=== PATIENT | female | born 1995 | race African-American/Black ===

== ENCOUNTER 2016-12-04 04:21 | Inpatient (IN) ==
[2016-12-04] MEDS ORDERED: ONDANSETRON 4 MG/2 ML VIAL IV PRN (04:41)
[2016-12-04] MEDS ORDERED: MEPERIDINE 50 MG/1 ML VIAL IV PRN (04:41)
[2016-12-04] MEDS ORDERED: BUTORPHANOL 2 MG/ML VIAL IV PRN (04:41)
[2016-12-04] MEDS ORDERED: LACTATED RINGERS 1,000 ML IV SCH (05:00)
--- NOTE | 2016-12-04 05:21 | OB/GYN History & Physical ---
History of Present Illness Chief complaint: Abdominal pain and bleeding History of present illness: Ms. Nickerson is a 21 year old female at 20 1/7 weeks who presented to L&D with complaints of abdominal pain, vaginal discomfort and bleeding. Pt checked on arrival and baby noted in the vault, complete dilation with a BBOW. Pt reports that she was "hurting" all day yesterday. When she went to the bathroom this morning, she had a difficult time voiding. After finally voiding she felt vaginal pain and pressure then decided to come in. course uneventful. Close interval. First baby delivered in September of 2015. Medical history significant for obesity. Surgical history significant for cholecystectomy. Home Medications Medication Instructions Recorded Confirmed Type No Known Home Medications [No 12/04/16 12/04/16 History Known Home Medications] Allergies Allergy/AdvReac Type Severity Reaction Status Date / Time Cherries Allergy Severe Swelling Verified 02/19/16 06:21 of Lip/Tongue/Throat ibuprofen [From Motrin] Allergy Intermediate RASH Verified 02/19/16 06:21 Medical,Surgical,& Family Hx - Medical History Cardio: No history of: Hypertension, Cardiovascular Problems Psychological: No history of: Anxiety Disorders, Behavior Problems, Depression, Previous Suicide Attempt, Psychiatric/Substance Abuse Tx, Psychiatric Problems Neurology: No history of: Migraine HEENT: No history of: HEENT Problems Endocrine: No history of: Thyroid Disorder, Endocrine Problems Respiratory: History of: Bronchitis No history of: Asthma, Obstructive Sleep Apnea, Respiratory Problems Renal: No history of: Renal Problems Genitourinary: No history of: Problems Gastrointestinal: No history of: GI Problems Musculoskeletal: No history of: Amputation, Musculoskeletal Problems Hematology: No history of: Bleeding Problems Reproductive: History of: Reproductive Problems (35 weeks ) No history of: Ectopic , Complication, Sexually Transmitted Disorders Other: No history of: Anesthesia Reactions, Cancer, HIV, Skin Problems, Miscellaneous Medical Problems - Surgical History Cardiac Surgeries: Patient Denies: Cardiac Catheterization, Cardiac Surgery Thoracic Surgeries: Patient denies;: Organ Transplant Neurologic Surgeries: Patient denies: Neurologic Surgery Abdominal Surgeries: Surgical HX of: Abdominal Surgery (gall stone surgery) Patient denies: Appendectomy, Cholecystectomy, Colonoscopy, Gastric Bypass Surgery, EGD Reproductive Surgeries: Patient denies;: Breast Surgery, Section, Dilation and Curettage, Genitourinary Surgery, Gynecologic Surgery, Hysterectomy, Tubal Ligation Orthopedic Surgeries: Patient denies;: Implanted Devices, Orthopedic Surgery, Spinal Surgery, Total Hip Replacement, Total Knee Replacement - Family History Family History: Reports;: Family Cancer (FATHER, MGF), Family Heart Disease (MOM , MGM), Family Hypertension (MOM, FATHER, GRANDPARENTS) Denies;: Family Anesthesia Reaction, Family Psychiatric Problems, Family Stroke - Social History Smoking Status: Never smoker 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 Absent: tenderness Assessment and Plan (1) 20 weeks gestation of Status: Acute Current Visit: Yes (2) labor in second trimester Status: Acute Assessment and plan: 20 1/7 weeks with complete dilation, BBOW and baby partially in the vault Anticipate Send UA, GC/CHL/Trich screen, Drug screen and appropriate bloodwork Current Visit: Yes
[2016-12-04 05:31] LABS: Apearance,Urine CLOUDY (Clear); Bilirubin,Urine Negative (Negative); Blood, Urine Negative (Negative); Glucose,Urine (UA) Negative (Negative); Ketones,Urine 5 mg/dL (Negative); Mucus,Urine Few /LPF (Occasional); Nitrite,Urine Negative (Negative); Protein,Urine Negative; RBC,Urine 6 /HPF (0-4); Squamous Epithelial Cell,Urine Occasional /HPF (0-10); Urine Color Yellow (Yellow); Urine Specific Gravity 1.021 (1.001-1.035); WBC,Urine 1 /HPF (0-6)
[2016-12-04 05:49] LABS: Basophils % 0.1 % (0.0-0.8); Eosinophils # 0.1 10*3/uL (0.0-0.87); Eosinophils % 0.7 % (0.00-10.9); Hematocrit 27.7 VOL% (35.7-47.0); Immature Granulocytes % 0.3 %; Immature Granulocytes Absolute 0.03 #; Lymphocytes % 16.9 % (21.3-54.2); Mean Corpuscular HGB Conc 32.5 GM/DL (32-36); Mean Corpuscular Hemoglobin 27 PG (27-34); Mean Corpuscular Volume 83.2 FL (87-102); Monocytes # 0.7 10*3/uL (0.11-0.8); Monocytes % 6.1 % (1.7-12.7); Neutrophils % 75.9 % (38.7-73.9); Platelet Count 235 T/CUMM (130-400); Red Blood Count 3.33 MC/CUMM (3.8-5.5); Red Cell Distribution Width 15.1 % (9.3-17.3); White Blood Count 11.8 T/CUMM (4-12)
[2016-12-04] MEDS ORDERED: OXYTOCIN/LR 20 UNIT/1,000 ML BAG IV ONE ×2 (06:06→06:16)
[2016-12-04] MEDS ORDERED: miSOPROStol 200 MCG TABLET ONE (06:35)
--- NOTE | 2016-12-04 06:44 | Event Note ---
DELIVERY NOTE of male en caul. Placenta remains undelivered. Baby alive with delivery and moving. 400 micrograms of cytotec placed vaginally. No lacerations noted.
[2016-12-04 06:59] LABS: Barbiturates Screen,Urine Negative (Negative); Benzodiazepines Screen,Urine Negative (Negative); Cannabinoid Screen,Urine Negative (Negative); Opiate Screen,Urine Negative (Negative); Phencyclidine Screen,Urine Negative (Negative)
--- NOTE | 2016-12-04 09:52 | Event Note ---
0917:This patient had a spontaneous delivery of a nonviable . Her placenta was still intact and the patient was complaining of pain and pressure. The placenta was manually removed intact the patient was given IV pain meds for pain management. She tolerated the procedure well. The vagina and cervix was inspected with no tears or lacerations noted. Several large clots as well as the placenta was removed from the uterus. The placenta was sent to pathology for further evaluation. Estimated blood loss was approximately 150 cc , at the time of dictation the patient is in stable condition.
[2016-12-04] MEDS: FERROUS SULFATE 325 MG TABLET PO SCH (22:00)
[2016-12-05 07:25] VITALS: BP 93/51
[2016-12-05] MEDS: FERROUS SULFATE 325 MG TABLET PO SCH (08:46)
--- NOTE | 2016-12-05 09:38 | OB/GYN Progress Note ---
Assessment and Plan (1) Vaginal delivery Status: Resolved Assessment and plan: Routine orders. 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 Tearful. Exam GROUP CONTRACT ANALYST - Constitutional Vitals: Vital Signs Temp Pulse Resp BP Pulse Ox 12/05/16 07:24 99.1 F 91 H 18 93/51 99 12/05/16 06:00 18 12/05/16 04:00 98.5 F 94 H 18 105/56 99 12/05/16 02:00 18 12/05/16 00:00 99.5 F 98 H 18 102/48 100 12/04/16 20:00 98.9 F 101 H 18 114/64 100 12/04/16 15:36 99.7 F H 89 18 105/65 98 12/04/16 12:44 98.4 F 106 H 20 127/78 General appearance: no acute distress - Antepartum / Post Antepartum Exam Breast: bilateral: normal Abdomen obstetrics: Present: bowel sounds hypoactive Vagina: Present: normal moisture, discharge (light lochia rubra) Uterus exam: Present: enlarged - Respiratory Respiratory exam: Present: clear to auscultation bilaterally - Cardiovascular Cardiovascular exam: Present: regular rate and rhythm - GI/Abdominal GI/Abdominal exam: Present: normal bowel sounds, soft - Extremities Exam Extremities exam: Present: normal inspection - Back Exam Back exam: Present: normal inspection - Neurological Exam Neurological exam: Present: alert, oriented X3 - Psychiatric Psychiatric exam: Present: depressed - Skin Skin exam: Present: normal color, warm Results - Labs CBC & BMP: 12/04/16 05:33
--- NOTE | 2016-12-05 09:59 | Discharge Summary ---
Hospital Course - Hospital Course Hospital Course: Ms. Nickerson presented to the labor department with spontaneous rupture membranes and labor. She subsequently delivered a nonviable infant. Her placenta had to be manually removed but was sent to pathology intact. The patient has followed a normal course and she has done well other than expected sadness due to her loss. Her bleeding is minimal with no odor. The patient desires to go home. Her vital signs and lab values are stable. She will be discharged home with prescriptions for pain and follow-up appointment in our office. The patient will also be sent home on an anti- depressant for depression. Diagnosis - Discharge Diagnosis (1) Vaginal delivery Status: Resolved Specialty Discharge - Follow Up or Referrals Follow up with: Viridiana Tang MD [Physician] - 1 Month Discharge Plan - Discharge Data Disposition: Disch To Home/Self Care Condition at Discharge: Stable Discharge Diet: advance to your usual diet, regular diet Activity: resume usual activities as tolerated Hygiene: may shower Weight Bearing at Discharge: weight bear as tolerated Driving: no restrictions Contact your physician if you experience:: fever over 101, pain uncontrolled by pain medications - Discharge Medications New Ferrous Sulfate Tab [Feosol Original Tab] 325 mg PO BID #60 tablet Acetamin/Codeine 300-30 Tab [Tylenol/Codeine #3] 2 tablet PO Q4H PRN #30 tablet PRN Reason: Pain Mild To Moderate (1-7) - Follow Up or Referral - Forms/Instructions Instructions: Vaginal Delivery (DC), Loss of a child (GEN) Exam - Constitutional Vitals: Period Temp Pulse Resp BP Sys/Hearn Pulse Ox Last 24 Hr 98.4 F-99.7 F 89-106 18-20 93-127/48-78 98-100 General appearance: no acute distress - Head Head exam: Present: normal inspection - Respiratory Respiratory exam: Present: clear to auscultation bilaterally - Cardiovascular Cardiovascular exam: Present: regular rate and rhythm - GI/Abdominal GI/Abdominal exam: Present: normal bowel sounds, soft - Extremities Exam Extremities exam: Present: normal inspection - Neurological Exam Neurological exam: Present: alert, oriented X3 - Psychiatric Psychiatric exam: Present: normal affect, normal mood - Skin Skin exam: Present: normal color, warm Discharge Results Procedures and tests throughout hospitalization: Pending Orders 12/04/16 04:41 Urinalysis Routine 12/04/16 07:04 Trichomonas vaginalis,Misc Stat DS: Provider Date of admission: 12/04/16 04:41 Primary care physician: . No PCP Attending physician on admission: Laura Izaguirre MD Consults: 12/04/16 04:41 Consult to Anesthesiology [CONS] Routine Consulting Provider: Reason for Anesthesiology: Epidural Consult Comment: Epidural for pain managment 12/04/16 05:51 Consult to Pastoral Services [CONS] Routine Comment: 20 WEEK LOSS Pastoral Screen: Request Hourly Shift Visit Grief Over Loss Pastoral Screen Source of Request: Patient Name of Physician Requesting: Other Source Requesting: PATIENT Discharging clinician: Kristi Jaimes CNM Expected date of discharge: 12/05/16
[2016-12-05] MEDS ORDERED: ESCITALOPRAM 10 MG TABLET PO SCH (10:00)
--- NOTE | 2016-12-05 12:19 | Pathology Report from [facility] ---
[facility] ACCESSION # : [id number] PATIENT NAME : Juancarlos Nickerson ORDERING DR : Laura Izaguirre MD CLINICAL HX: IUP @ 20 wks gestation, demise POST-OP DX: Same SPECIMEN INFO: Placenta GROSS DESCRIPTION: The specimen is received fresh labeled JUANCARLOS NICKERSON consists of a 122.0 gm placenta measuring 10.3 x 10.2 x 1.7 cm. The membranes are scanty with adherent chorion present. The umbilical cord is received in a separate container and measures 16.5 cm and contains three vessels. There are two claps attached. The surface is bishop-pink with a 2.5 cm rent present. Multiple areas of adherent clotted blood noted . The maternal surface is pink-smith with clotted blood and moderately to markedly disrupted cotyledons. Sectioning reveals areas of fibrosis and hemorrhage. Community Service Specialist sections submitted: (A) membranes and cord and (B) and maternal surface. DIAGNOSIS FOR JUANCARLOS NICKERSON: PLACENTA, MEMBRANES, UMBILICAL CORD: Focal acute and chronic inflammation, blood clots, focal infarction. Tri-vessel umbilical cord. Acute chorioamnionitis. COLLECTED DATE: 12/04/2016 [facility] REPORT DATE: 12/05/2016 ELECTRONICALLY SIGNED BY: Eve Chapa M.D. 12/05/2016 - 9:50:12 [facility]
== END 2016-12-05 14:50 | disposition home or self-care (01) | DRG 560 ==
LOC: N.LDOUT 04:21 → N.LD 04:23 → N.OB 12:41
PROVIDERS: ADMIT Obstetrics & Gynecology; ATTEND Obstetrics & Gynecology

== ENCOUNTER 2021-06-06 03:09 | Inpatient (IN) ==
[2021-06-06] MEDS ORDERED: BUTORPHANOL 2 MG/ML VIAL IV PRN (03:22)
[2021-06-06] MEDS ORDERED: MEPERIDINE 50 MG/1 ML VIAL IV PRN (03:22)
[2021-06-06] MEDS ORDERED: ONDANSETRON 4 MG/2 ML VIAL IV PRN (03:22)
[2021-06-06] MEDS: LACTATED RINGERS 1,000 ML IV SCH ×3 (03:40→12:32)
[2021-06-06 04:27] LABS: Basophils % 0.3 % (0.0-0.8); Eosinophils # 0.1 10*3/uL (0.0-0.87); Eosinophils % 1.1 % (0.00-10.9); Hematocrit 27.9 VOL% (35.7-47.0); Hemoglobin 8.6 GM/DL (12.0-16.0); Immature Granulocytes % 0.4 %; Immature Granulocytes Absolute 0.03 #; Lymphocytes # 2.3 10*3/uL (1.4-4.0); Lymphocytes % 29.3 % (21.3-54.2); Mean Corpuscular HGB Conc 30.8 GM/DL (32-36); Mean Corpuscular Volume 79.7 FL (87-102); Mean Platelet Volume 10.4 FL (9.6-12.0); Monocytes % 8.5 % (1.7-12.7); Neutrophils % 60.4 % (38.7-73.9); Platelet Count 259 T/CUMM (130-400); Red Cell Distribution Width 18.3 % (9.3-17.3); White Blood Count 7.9 T/CUMM (4-12)
[2021-06-06 04:41] LABS: PT Patient Result 11.4 SECS (10.5-12.0); Partial Thromboplastin Time 26.8 SECS (23.8-32.1)
[2021-06-06 04:59] LABS: Bilirubin,Direct < 0.100 MG/DL (0.0-0.20); Uric Acid 4.6 MG/DL (2.6-6.0)
[2021-06-06 05:39] LABS: Alanine Aminotransferase 12 U/L (13-56); Albumin 2.8 G/DL (3.4-5.0); Alkaline Phosphatase 119 U/L (45-117); Aspartate Amino Transferase 11 U/L (0-37); Bilirubin,Total < 0.39 MG/DL (0.20-1.00); Blood Urea Nitrogen 9 MG/DL (7-18); Calcium 9.3 MG/DL (8.5-10.1); Carbon Dioxide 20 MMOL/L (21-32); Estimated Glom Filtration Rate 167 ML/MIN; Glucose 85 MG/DL (74-106); Potassium 3.7 MMOL/L (3.5-5.1); Sodium 136 MMOL/L (136-145); Total Protein 7.1 G/DL (6.4-8.2)
[2021-06-06] MEDS ORDERED: diphenhydrAMINE 50 MG/1 ML VIAL IV PRN (06:06)
[2021-06-06] MEDS ORDERED: CITRIC ACID/SODIUM CITRATE 30 ML UDCUP PO ONE (06:06)
[2021-06-06] MEDS ORDERED: PROMETHAZINE 25 MG/1 ML VIAL IM PRN (06:06)
[2021-06-06] MEDS ORDERED: hydrOXYzine HCL 25 MG/1 ML VIAL IM PRN (06:06)
[2021-06-06] MEDS ORDERED: NALOXONE 0.4 MG/ML VIAL IV PRN (06:06)
[2021-06-06] MEDS ORDERED: FAMOTIDINE 20 MG/2 ML VIAL IV ONE (06:06)
[2021-06-06] MEDS: fentaNYL 2 MCG/ROPIV 0.2% EPID 100 ML EPIDURAL SCH ×2 (07:41→14:38)
[2021-06-06] MEDS: ePHEDrine 50 MG/ML VIAL IV PRN ×3 (07:43→08:35)
[2021-06-06] MEDS ORDERED: LABETALOL 100 MG TABLET PO SCH (09:00)
[2021-06-06] MEDS ORDERED: OXYTOCIN/LR 20 UNIT/1,000 ML BAG IV SCH (09:30)
[2021-06-06 09:36] LABS: Bilirubin,Urine Negative (Negative); Blood, Urine Small mg/dL (Negative); Glucose,Urine (UA) Negative (Negative); Ketones,Urine Negative (Negative); Mucus,Urine Occasional /LPF (Occasional); Nitrite,Urine Negative (Negative); Protein,Urine Negative; RBC,Urine 1 /HPF (0-4); Squamous Epithelial Cell,Urine Occasional /HPF (0-10); Urine Appearance CLEAR (Clear); Urine Color Straw (Yellow); Urine Specific Gravity 1.012 (1.001-1.035); Urine Urobilinogen < 2.0 EU/DL (<2.0)
[2021-06-06] MEDS ORDERED: miSOPROStoL 200 MCG TABLET ONE (15:22)
[2021-06-06] MEDS ORDERED: TRANEXAMIC ACID 1,000 MG/10 ML VIAL ONE (15:22)
[2021-06-06] MEDS ORDERED: CARBOPROST TROMETHAMINE 250 MCG/ML AMP IM ONE (15:23)
[2021-06-06] MEDS ORDERED: OXYTOCIN/LR 0 UNIT/0 ML BAG IV ONE (15:23)
[2021-06-06] MEDS ORDERED: METHYLERGONOVINE 0.2 MG/1 ML AMP ONE (15:23)
[2021-06-06] MEDS ORDERED: SODIUM CHLORIDE 0.9% 0 ML IV ONE (15:23)
[2021-06-06 16:48] LABS: Cord Arterial Blood HCO3 19.6 MMOL/L
[2021-06-06 16:49] LABS: Cord Venous Blood HCO3 21.3 MMOL/L; Cord Venous Blood PO2 27.8 MMHG
[2021-06-06] MEDS ORDERED: RHO(D) IMMUNE GLOBULIN 300 MCG SYRINGE IM ONE (19:28)
[2021-06-06] MEDS ORDERED: BISACODYL 10 MG SUPP RECTAL PRN (19:28)
[2021-06-06] MEDS ORDERED: ACETAMINOPHEN 325 MG TABLET PO PRN (19:28)
[2021-06-06] MEDS ORDERED: OXYTOCIN/LR 20 UNIT/1,000 ML BAG IV ONE (19:28)
[2021-06-06] MEDS ORDERED: oxyCODONE/ACETAMINOPHEN 5-325 MG TABLET PO PRN (19:28)
[2021-06-06] MEDS ORDERED: MEASLES/MUMPS/RUBELLA VACCINE 0.5 ML VIAL SUBCUT ONE (19:28)
[2021-06-06] MEDS ORDERED: BENZOCAINE 20%/MENTHOL 0.5% SPRAY 56 GM CAN TOP PRN (19:28)
[2021-06-06] MEDS ORDERED: HYDROCORTISONE 2.5% RECTAL CREAM 30 GM TUBE TOP PRN (19:28)
[2021-06-06] MEDS ORDERED: IBUPROFEN 800 MG TABLET PO PRN (19:28)
[2021-06-06] MEDS ORDERED: DIPH/TET/ACEL PERT BOOSTER VACCINE 0.5 ML VIAL IM ONE (19:28)
[2021-06-06] MEDS ORDERED: WITCH HAZEL PADS 100/JAR TOP PRN (19:28)
[2021-06-06] MEDS ORDERED: LANOLIN 50% CREAM 0.3 OZ TUBE TOP PRN (19:28)
[2021-06-06] MEDS: oxyCODONE/ACETAMINOPHEN 5-325 MG TABLET PO PRN (19:39)
[2021-06-06] MEDS: DOCUSATE SODIUM 100 MG CAPSULE PO SCH (21:49)
[2021-06-07] MEDS: oxyCODONE/ACETAMINOPHEN 5-325 MG TABLET PO PRN ×3 (02:15→21:32)
[2021-06-07 05:57] LABS: Basophils % 0.1 % (0.0-0.8); Eosinophils # 0.1 10*3/uL (0.0-0.87); Eosinophils % 0.9 % (0.00-10.9); Hematocrit 26.4 VOL% (35.7-47.0); Hemoglobin 8.1 GM/DL (12.0-16.0); Immature Granulocytes % 0.3 %; Immature Granulocytes Absolute 0.03 #; Lymphocytes % 19.2 % (21.3-54.2); Mean Corpuscular HGB Conc 30.7 GM/DL (32-36); Mean Corpuscular Volume 80.2 FL (87-102); Monocytes % 8.3 % (1.7-12.7); Neutrophils % 71.2 % (38.7-73.9); Platelet Count 237 T/CUMM (130-400); Red Blood Count 3.29 MC/CUMM (3.8-5.5); Red Cell Distribution Width 18.3 % (9.3-17.3); White Blood Count 10.5 T/CUMM (4-12)
[2021-06-07] MEDS: DOCUSATE SODIUM 100 MG CAPSULE PO SCH ×2 (09:53→21:28)
[2021-06-07] MEDS: FERROUS SULFATE 325 MG TABLET PO SCH ×2 (09:53→21:28)
[2021-06-08] MEDS: DOCUSATE SODIUM 100 MG CAPSULE PO SCH (08:41)
[2021-06-08] MEDS: FERROUS SULFATE 325 MG TABLET PO SCH (08:46)
[2021-06-08] MEDS: oxyCODONE/ACETAMINOPHEN 5-325 MG TABLET PO PRN (09:03)
[2021-06-08 09:07] VITALS: BP 138/88
== END 2021-06-08 12:50 | disposition home or self-care (01) | DRG 560 ==
LOC: N.LD 03:09 → N.OB 20:54
PROVIDERS: ADMIT Obstetrics & Gynecology; ATTEND Obstetrics & Gynecology